=== PATIENT | female | born 1995 | race Caucasian/White ===

== ENCOUNTER 2024-08-27 15:37 | Emergency (ER) | payer BC ==
[~2024-08-27] VITALS: Ht 154.9 cm; Wt 52.0 kg
[2024-08-27 15:42] VITALS: TEMP 99.6
[2024-08-27] MEDS ORDERED: CYMB60CA4 PO (16:02)
[2024-08-27] MEDS ORDERED: BUSP10TA PO (16:02)
[2024-08-27 16:49] LABS: HEMATOCRIT 47.2 % (36.0-47.0); HEMOGLOBIN 16.1 g/dl (12.0-15.5); MEAN CORPUSCULAR HGB CONC 34.1 g/dl (32.0-36.5); MEAN CORPUSCULAR VOLUME 99.8 fl (80.0-96.0); PLATELET COUNT, AUTOMATED 318 10^3/uL (150-450); RED BLOOD COUNT 4.73 10^6/uL (4.00-5.40); WHITE BLOOD COUNT 8.2 10^3/uL (4.0-10.0)
[2024-08-27 18:25] VITALS: BP 119/77; O2SAT 99
== END 2024-08-27 18:25 | disposition home or self-care (01) ==
LOC: M ED 15:37
DX: O04.80 (Induced) termination of pregnancy with unspecified complications (principal)